=== PATIENT | male | born 2000 | race Two or more races ===

== ENCOUNTER 2025-07-05 21:18 | Emergency (ER) | payer OTHER ==
[~2025-07-05] VITALS: Ht 175.3 cm; Wt 72.0 kg
[2025-07-05 21:18] VITALS: BP 126/65; PULSE 135; RESP 18; TEMP 98.5; O2SAT 96
[2025-07-05] MEDS ORDERED: KETOROLAC TROMETH 60MG/2ML VIAL IM ONE (21:30)
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
== END 2025-07-05 23:22 | disposition left against medical advice (07) ==
LOC: ER 21:18 → EDBD 21:18 → ER 23:22
DX: S00.81XA Abrasion of other part of head, initial encounter (principal); W18.39XA Other fall on same level, initial encounter; Y93.89 Activity, other specified; Y92.89 Other specified places as the place of occurrence of the external cause; Y99.8 Other external cause status